=== PATIENT | female | born 1955 | race Caucasian/White ===

== ENCOUNTER 2016-12-17 08:52 | Emergency (ER) | payer OTHER ==
[~2016-12-17] VITALS: Ht 165.1 cm; Wt 95.0 kg
[2016-12-17] MEDS ORDERED: BACITRACIN ZINC OINT UDPKT TOP ONE (09:45)
[2016-12-17] MEDS ORDERED: LIDOCAINE HCL 1% 20ML VIAL (Pyxis) INJ MC ONE (09:45)
[2016-12-17] MEDS ORDERED: TETANUS, DIPHTHERIA, PERTUSSIS VAC/PF 0.5ML (>7YR OLD) IM ONE (09:45)
[2016-12-17 11:15] VITALS: BP 135/79
== END 2016-12-17 10:58 | disposition home or self-care (01) ==
LOC: ER 09:18
DX: S01.81XA Laceration without foreign body of other part of head, initial encounter (principal); J45.909 Unspecified asthma, uncomplicated; W22.8XXA Striking against or struck by other objects, initial encounter; Y93.89 Activity, other specified; Y92.59 Other trade areas as the place of occurrence of the external cause; Y99.8 Other external cause status
CPT/HCPCS: 12013; 90471; 90715; 99284; J3490